=== PATIENT | female | born 1940 | race Caucasian/White ===

== ENCOUNTER 2022-06-19 18:11 | Inpatient (IN) | payer OTHER ==
[~2022-06-19] VITALS: Ht 162.6 cm; Wt 72.6 kg
[2022-06-19 18:21] VITALS: BP 80/26
[2022-06-19] MEDS ORDERED: NACL 0.9% 2,000 ML IV ONE (18:30)
--- NOTE | 2022-06-19 18:30 | NUR ---
CHRISTOS FROM [facility] D/T ALOC. PER EMS, PT WAS ORIGINALLY PLACED ON HOSPICE AND WAS TAKEN OUT OF HOSPICE RECENTLY. UNABLE TO OBTAIN FURTHER HX EMS WAS NOT ABLE TO PROVIDE MORE PAPERWORK INCLUDING FACESHEET THE FACILITY JUST RECEIVED THE PATIENT TO THE FACILITY. PT HR 46 AT BEDSIDE WITH BP 80/26. ERMD AWARE.
--- NOTE | 2022-06-19 18:32 | NUR ---
BLOOD DRAWN BY PRIVATE EQUITY ASSOCIATE
[2022-06-19] MEDS ORDERED: VANCOMYCIN 1,000 MG in DEXTROSE 5% 250 ML IV ONE (18:35)
[2022-06-19] MEDS ORDERED: PIPERACILLIN/TAZOBACTAM 3.375 GM in DEXTROSE 5% 50 ML IV ONE (18:35)
[2022-06-19] MEDS ORDERED: VANCOMYCIN 1,000 MG VIAL ONE (18:38)
[2022-06-19] MEDS ORDERED: PIPERACILLIN/TAZOBACTAM 3.375 GM VIAL IV ONE (18:39)
--- NOTE | 2022-06-19 18:40 | NUR ---
CALLED [facility]. PER STAFF, WILL FAX OVER CLINICALS. NEXT OF KIN CONTACT INFO HARJEET (DAUGHTER) [phone]. ATTEMPTED TO CALL HARJEET, NO ANSWER, LVM. MADDY MADE AWARE.
[2022-06-19 18:43] LABS: HEMATOCRIT 33.1 % (36-48); HEMOGLOBIN 10.7 g/dL (12.0-16.0); MEAN CORPUSCULAR HEMOGLOBIN 29 pg (27-31); MEAN CORPUSCULAR HGB CONC 32 g/dL (33-37); PLATELET COUNT (AUTO) 223 K/uL (140-450); RED BLOOD CELL COUNT(AUTO) 3.77 MIL/uL (4.20-5.40); RED CELL DISTRIBUTION WIDTH 16.5 % (11.6-13.7)
[2022-06-19 19:05] LABS: LYMPHOCYTES % (MANUAL) 7 % (20-46); MONOCYTES % (MANUAL) 4 % (5-12)
[2022-06-19 19:06] LABS: PROMYELOCYTES % 1 % (0-0)
[2022-06-19 19:19] LABS: ALBUMIN 2.4 g/dL (3.4-5.0); ANION GAP 13.2 (8-16); ASPARTATE AMINOTRANSFERASE 26 U/L (15-37); CARBON DIOXIDE 25.1 mmol/L (21-32); CHLORIDE 96 mmol/L (98-107); CREATININE 1.4 mg/dL (0.6-1.3); GLUCOSE 127 mg/dL (74-106); POTASSIUM 4.3 mmol/L (3.5-5.1); SODIUM SERUM 130 mmol/L (136-145); TOTAL BILIRUBIN 0.3 mg/dL (0.0-1.0); UREA NITROGEN, BLOOD 28 mg/dL (7-18)
--- NOTE | 2022-06-19 19:20 | NUR ---
PT APPEARS TO BE RESTING WITH EYES CLOSED, EQUAL RISE AND FALL OF CHEST WALL. ALL NEEDS MET AT THIS TIME.
[2022-06-19] MEDS ORDERED: MORPHINE SULFATE 2 MG/ML SYR IVP PRN (20:50)
[2022-06-19] MEDS ORDERED: ACETAMINOPHEN 650 MG SUPP RC ONE (20:50)
[2022-06-19] MEDS ORDERED: KETOROLAC 15 MG/ML VIAL IVP ONE (20:50)
--- NOTE | 2022-06-19 21:17 | NUR ---
PT REPOSITIONED, DIAPER REMOVED PER DAUGHTER'S REQUEST. PT'S SHEETS REMOVED. MEDICATION GIVEN PER ERMD ORDERS. DAUGHTER IS AT BEDSIDE.
--- NOTE | 2022-06-19 22:34 | NUR ---
SWAB COLLECTED TAKEN TO LAB.
[2022-06-19] MEDS ORDERED: DOCUSATE SODIUM 100 MG GELCAP PO PRN (22:40)
[2022-06-19] MEDS ORDERED: ONDANSETRON 4 MG/2 ML VIAL IM/IVP PRN (22:40)
[2022-06-19] MEDS ORDERED: guaiFENesin DM 200/20 MG-10 ML 10 ML UDC PO PRN (22:40)
[2022-06-19] MEDS ORDERED: ACETAMINOPHEN 325 MG TAB PO PRN (22:40)
[2022-06-19] MEDS ORDERED: ALBUTEROL SULFATE/IPRATROPIU 3 ML SOL IH PRN (22:45)
[2022-06-19] MEDS: DEXT 5% / NACL 0.9% 500 ML IV SCH (23:04)
[2022-06-19 23:29] LABS: PROTHROMBIN TIME 12.2 secs (10.8-13.4)
[2022-06-20] VITALS (7 sets, daily range): BP systolic 98–172; BP diastolic 46–63
[2022-06-20 00:03] LABS: CHOL/HDL RATIO 1.6 (1-4.5); FREE T4 (FREE THYROXINE) 0.86 ng/dL (0.76-1.46); PHOSPHORUS 3.3 mg/dL (2.5-4.9); THYROID STIMULATING HORMONE 0.13 uIU/mL (0.34-3.74)
[2022-06-20 00:50] LABS: APPEARANCE,URINE CLOUDY (CLEAR); BILIRUBIN,URINE NEGATIVE (NEGATIVE); BLOOD, URINE 1+ (NEGATIVE); COLOR,URINE DARK YELLOW (YELLOW); LEUKOCYTE ESTERASE ,URINE 3+ (NEGATIVE); NITRITE, URINE NEGATIVE (NEGATIVE); PH,URINE 6.5 (5.0-9.0); UGLUCOSE NEGATIVE (NEGATIVE)
[2022-06-20 00:56] LABS: RBC,URINE 0-5 /HPF (0-5); WBC,URINE TOO MANY TO COUNT /HPF (0-5)
[2022-06-20] MEDS: MORPHINE SULFATE 2 MG/ML SYR IVP PRN ×3 (01:28→09:14)
[2022-06-20] MEDS ORDERED: [UNRECOGNIZED DRUG - OTHER] PO (02:49)
[2022-06-20] MEDS ORDERED: POTA10TA70 PO (02:49)
[2022-06-20] MEDS ORDERED: LEVO50CA2 PO (02:49)
[2022-06-20] MEDS ORDERED: OXYC-304 PO (02:49)
[2022-06-20] MEDS ORDERED: MONT10TA35 PO (02:49)
[2022-06-20] MEDS ORDERED: QUET100T PO (02:49)
[2022-06-20] MEDS ORDERED: SPIR50TA PO (02:49)
[2022-06-20] MEDS ORDERED: PANT40EC PO (02:49)
[2022-06-20] MEDS ORDERED: CYAN250013 PO (02:49)
[2022-06-20] MEDS ORDERED: FURO-570 PO (02:49)
[2022-06-20] MEDS ORDERED: CETI10TA71 PO (02:49)
[2022-06-20] MEDS ORDERED: ATOR80TA27 PO (02:49)
[2022-06-20] MEDS ORDERED: ASPI-1822 PO (02:49)
[2022-06-20] MEDS ORDERED: LYR50 PO (02:49)
[2022-06-20] MEDS ORDERED: CARV6.25 PO (02:49)
[2022-06-20] MEDS ORDERED: MULT-1328 PO (02:49)
--- NOTE | 2022-06-20 03:24 | NUR ---
PT IS AWAKE AND ALERT. A&OX3. GCS 14. PT HAS BEEN REPOSITIONED FOR COMFORT AND GIVEN WATER.
--- NOTE | 2022-06-20 04:07 | NUR ---
PT REPORTED SPINAL PAIN, PT MEDICATED PER ORDERS.
--- NOTE | 2022-06-20 05:04 | NUR ---
RT AT BEDSIDE. PT GIVEN WATER PER REQUEST.
[2022-06-20] MEDS: ALBUTEROL SULFATE/IPRATROPIU 3 ML SOL IH SCH ×3 (07:00→19:59)
[2022-06-20] MEDS: DEXT 5% / NACL 0.9% 500 ML IV SCH (07:01)
--- NOTE | 2022-06-20 07:07 | NUR ---
PT GIVEN WATER PER REQUEST.
[2022-06-20 07:16] LABS: BASOPHILS % (AUTO) 0.1 % (0.0-2.0); EOSINOPHILS % (AUTO) 0.1 % (0.0-4.0); HEMATOCRIT 35.6 % (36-48); HEMOGLOBIN 11.5 g/dL (12.0-16.0); LYMPHOCYTES # (AUTO) 0.5 K/uL (2.5-16.5); LYMPHOCYTES % (AUTO) 2.2 % (20.5-51.1); MEAN CORPUSCULAR HEMOGLOBIN 29 pg (27-31); MEAN CORPUSCULAR HGB CONC 32 g/dL (33-37); MEAN CORPUSCULAR VOLUME 89.7 fL (80-94); MONOCYTES # (AUTO) 2.8 K/uL (0.8-1.0); MONOCYTES % (AUTO) 11.8 % (1.7-9.3); NEUTROPHILS % (AUTO) 85.8 % (42.2-75.2); PLATELET COUNT (AUTO) 207 K/uL (140-450); RED BLOOD CELL COUNT(AUTO) 3.97 MIL/uL (4.20-5.40); RED CELL DISTRIBUTION WIDTH 16.6 % (11.6-13.7); WHITE BLOOD COUNT (AUTO) 23.3 K/uL (4.8-10.8)
--- NOTE | 2022-06-20 07:27 | NUR ---
Alex natarajan in ED - 06/20/22 at 0728 by PHUONG Pt report given to tremaine garcia. Transfer of care at this time.
--- NOTE | 2022-06-20 07:28 | NUR ---
Pt report given to tremaine garcia. Transfer of care at this time.
[2022-06-20 08:15] LABS: ANION GAP 11.7 (8-16); CARBON DIOXIDE 26.6 mmol/L (21-32); CHLORIDE 97 mmol/L (98-107); CREATININE 1.3 mg/dL (0.6-1.3); GLUCOSE 114 mg/dL (74-106); POTASSIUM 4.3 mmol/L (3.5-5.1); SODIUM SERUM 131 mmol/L (136-145); UREA NITROGEN, BLOOD 24 mg/dL (7-18)
--- NOTE | 2022-06-20 08:58 | NUR ---
PATIENTS DAUGHTER AT BEDSIDE . MED STUDENT RESIDENT AT BEDSIDE SPOKE WITH DAUGHTER REGARDING CARE OF PATIENT
[2022-06-20] MEDS ORDERED: PANTOPRAZOLE 40 MG INJ VIAL IVP SCH (09:00)
--- NOTE | 2022-06-20 09:29 | NUR ---
81YR OLD FEMALE C/O SEPTIC PT IS ADMITTED TO [facility]. PT IS A&OX2 . A DNR STATUS. BEDBOUND. COOPER CATH AND INCONT. PT HAS L SIDED WEAKNESS. PT IS ON DRY CANS OPERATOR. SP02 AT 2L 96%. DAUGHTER CURRENTLY AT BEDSIDE MET CA REDD SMITH
--- NOTE | 2022-06-20 09:41 | NUR ---
DAUGHTER REQUESTING FOR PATIENT TO RECIEVE SOMETHING TO "CALM DOWN " HER MOM. PT IS RESTING WITH HOB UP. PT STATES SHE FEELS HOT , TEMP 97.4 ORAL. NO DISTRESS NOTED. PAGE OUT DR. ROSALES.
[2022-06-20] MEDS ORDERED: LORazepam 0.5 MG TAB ONE (09:58)
[2022-06-20] MEDS ORDERED: LORazepam 0.5 MG TAB PO PRN (10:00)
[2022-06-20] MEDS ORDERED: CRUSHER, PILL MC ONE (10:01)
[2022-06-20] MEDS ORDERED: MEROPENEM 1,000 MG VIAL IV ONE (10:58)
[2022-06-20] MEDS: MEROPENEM 1,000 MG in NACL 0.9% 50 ML IV SCH ×2 (11:07→21:45)
[2022-06-20] MEDS ORDERED: DEXT 5% /NACL 0.9% 1,000 ML IV SCH (11:55)
--- NOTE | 2022-06-20 13:31 | NUR ---
SPOKE WITH HARJEET - DAUGHTER WHO STATED PT IS DNR BUT WOULD LIKE ALL TREATMENT TO BE CONTINUED.
--- NOTE | 2022-06-20 13:47 | NUR ---
Patient will be admitted to care of DR CASTRO. Admited to [TELE Will go to [id number] . Belongings list completed. Report to ABRIL.
--- NOTE | 2022-06-20 13:48 | NUR ---
Chart checked and completed. The patient's care was reviewed and supervised by Angelique Blevins RN.
[2022-06-20] MEDS: PREGABALIN 50 MG CAP PO SCH ×2 (13:54→17:00)
--- NOTE | 2022-06-20 14:41 | NUR ---
DC PLANNING: THE PATIENT WAS BIBA FROM [facility] WITH C/O ALOC, B/P IN FIELD 80/20. T-101.7, HR 46, WBC 22, NA+ 130, CR 1.4, LACTIC ACID 2.3, ALK PHOS 182, UA POSITIVE FOR WBC'S, BACTERIA, BLOOD AND MUCUS. GIVEN VANCO, ZOSYN AND IVF'S IN ED, ORDERS FOR ID CONSULT. CM SPOKE WITH THE PATIENTS DAUGHTER HARJEET BY PHONE. HARJEET REVOKED THE PATIENTS HOSPICE TODAY, STATES THAT PATIENT WAS AT [facility] ASSISTED LIVING AND WAS THEN TRANSITIONED TO [facility] AT THEIR SUGGESTION. WAS WITH [facility] AND THEN [facility]. HOSPICE WAS REVOKED MULTIPLE TIMES WHILE PATIENT WAS AT [facility], EACH TIME SHE WENT TO THE ED. [facility] DID NOT WANT TO SEND THE PATIENT TO ED WHICH DAUGHTER DISAGREED WITH. HARJEET DOES NOT WANT THE PATIENT TO GO BACK ON HOSPICE AND PATIENT HAS EXPRESSED TO HARJEET THAT SHE WANTS TO CONTINUE TO "FIGHT". HARJEET IS NOT SURE WHAT HOSPICE DIAGNOSIS WAS BUT STATES PATIENT WAS BECOMING LESS MOBILE AND MORE INCONTINENT AT [facility]. THE PATIENT HAD A FALL AT [facility] 4 DAYS AGO, PRIOR TO THAT SHE WAS ABLE TO USE HER ELECTRIC WC BUT HAS NOT BEEN AMBULATORY FOR SEVERAL MONTHS. SHE IS ABLE TO FEED HERSELF BUT REQUIRES ASSISTANCE WITH ADL'S. HER DAUGHTER WOULD LIKE HER TO GO TO SNF AND THEN WILL TAKE HER HOME WITH / CAREGIVERS. HER SNF'S OF CHOICE ARE [facility], REPLACED BY [facility] AND [facility]. [place] WILL FOLLOW. Addendum: 06/22/22 at 1414 by Anna Apple CM DC PLANNING: REFERRALS SENT TO [facility], [facility] AND [facility] FOR SNF PLACEMENT, CM WILL FOLLOW UP FOR ACCEPTANCE. Addendum: 06/22/22 at 1524 by Anna Apple CM DC PLANNING: [facility] UNABLE TO ACCEPT THEY DON'T HAVE BEDS. CM SPOKE WITH THE PATIENTS DAUGHTER HARJEET, SHE ASKED THAT REFERRALS BE FAXED TO [facility] SN[facility] ([phone]), [facility] ([phone] AND [facility] ([phone]) SHE LIVES IN [place] AND WANTS THE PATIENT CLOSER TO HER. TRANSPORT WILL NEED TO BE ARRANGED WITH [employer] IF THEY ARE WILLING TO GO TO [place] OTHERWISE THE PATIENTS DAUGHTER WILL HAVE TO PAY PRIVATELY. CM WILL FOLLOW. Addendum: 06/22/22 at 1623 by Anna Apple CM DC PLANNING: PATIENT ACCEPTED BY [facility] IN [place], ROOM 36B WITH DR HELLER. [id number], . FACILITY WILL CALL THE PATIENTS DAUGHTER HARJEET TO CONFIRM AGREEMENT WITH PLACEMENT. CM WILL FOLLOW. Addendum: 06/25/22 at 1604 by Talisha De La Cruz RN DC: PLANNING: CALLED PT'S DAUGHTER [phone] SPOKE WITH HARJEET STATED SHE DIDN'T AGREE WITH HER MOM GOING TO [place] BECAUSED THE RATE IS 2.9. SHE WAS EXPECTING FROM OTHER SNF IN [place] ARE[place]. CALLED [facility] [phone] SPOKE WITH JAMI AND AFTER REVIEWING STATED CALLED BACK AND SAID NO BED AVAILABLE FOR TODAY. [facility] [place] [phone] LEFT A MESSAGE. CALLED [facility] SPOKE WITH JAVIER STATED NO BED AVAILABLE. CM CALLED BACK HARJEET DISCUSSED THE DC PLAN TO HER MOTHER. [facility] SPOKE WITH HI. PER HARJEET IF HER MOM GETS ACCEPT AT REPLACED BY [facility] IT'S HER #1 CHOICE. CM TO FOLLOW Addendum: 06/25/22 at 1642 by Talisha De La Cruz RN DC PLANNING: CALLED [facility] SPOKE WITH JEFFREY [phone] STATED THEY CAN NOT ACCEPT PATIENT TODAY BECAUSE OF SHORT STAFF BUT OK TO SEND PT TOMORROW AM. CM TO FOLLOW Addendum: 06/26/22 at 1257 by Talisha De La Cruz RN DC PLANNING: RECEIVED A MESSAGE FROM HARJEET PT'S DAUGHTER LEFT 3 SNF AROUND [facility] [phone] AND FAXED TO [phone] CALLED [facility] [phone], SPOKE WITH COURTNEY AND FAXED TO [phone]. [facility] [phone] SPOKE WITH JAMI STATED NO BED AVAILABLE THIS WEEK. CM CALLED PT'S DAUGHTER SPOKE WITH HARJEET DISCUSSED THE OTHER FACILITY HAS NO BE PER HARJEET SHE AGREED FOR HER MOM TO GO TO [facility] AND WILL ING TO PAY THE TRANSPORT, CM CONTACT [facility] 650 AND [facility] 550$ . PER HARJEET REQUESTING TO TALKING BOOKS LIBRARY CLERK THE ELECTRIC SCOOTER FROM BOARD AND CARE THE ADDRESS [address] [facility] IN [facility]. CM SPOKE WITH PATIENT AGREED TO GO TO [facility]. PCIK UP TIME 7PM. NOTIFIED SHARON SOTO.
--- NOTE | 2022-06-20 16:06 | NUR ---
PT'S BLOOD PRESSURE 83/47, HR 91, AND TEMP 102.7. TYLENOL GIVEN, BOLUS OF NS GIVEN, MD BARRETO MADE AWARE WILL CONTINUE TO MONITOR
--- NOTE | 2022-06-20 16:21 | NUR ---
PATIENT HAS BEEN SCREENED AND CATEGORIZED HIGH NUTRITION RISK. PATIENT WILL BE SEEN WITHIN 1-2 DAYS OF ADMISSION. ANDREA BALDERRAMA RD
--- NOTE | 2022-06-20 16:41 | NUR ---
BP 104/46, HR 82, TEMP 99.7
--- NOTE | 2022-06-20 17:18 | NUR ---
BP 99/37, MADE AWARE, STARTED PT ON NS @ 100
[2022-06-20] MEDS: NACL 0.9% 1,000 ML IV SCH (17:33)
--- NOTE | 2022-06-20 17:35 | NUR ---
notified dr sharif pt's sbp 90s, map 50s. ordered 1L ns bolus
[2022-06-20] MEDS ORDERED: NACL 0.9% 1,000 ML IV SCH (17:50)
[2022-06-20] MEDS ORDERED: VANCOMYCIN PER PHARMACY MC PRN (17:55)
--- NOTE | 2022-06-20 18:32 | NUR ---
BP , NOTIFIED DR BARRETO, SHE WILL SPEAK TO PT'S DAUGHTER REGARDING CARE
[2022-06-20] MEDS ORDERED: NOREPINEPHRINE 4 MG/4 ML VIAL IV ONE (18:36)
[2022-06-20] MEDS ORDERED: NOREPINEPHRINE 4 MG in DEXTROSE 5% 250 ML IV PRN (18:40)
--- NOTE | 2022-06-20 18:45 | NUR ---
RECEIVED MESSAGE FROM DR BARRETO. START LEVO AND TRANSFER TO ICU
--- NOTE | 2022-06-20 18:54 | NUR ---
PT WAS SEEN FOR DYSPHAGIA. PT WAS HAVING DIFFICULTY INITIATING SWALLOW AND FALLING SLEEP IN BETWEEN. RECOMMENDATION NOTHING BY MOUTH
--- NOTE | 2022-06-20 19:15 | NUR ---
TRANSFERRED TO ICU 2
--- NOTE | 2022-06-20 19:20 | NUR ---
TRANS IN FROM TELE PER BED DUE TO HYPOTENSION; AWAKE ALERT AND ORIENTED; BREATHING EVEN AND UNLABORED AT 2 LITERS 02/NC SO2 97%. CARDIACSCOPE SHOWS ON SINUS RHYTHM HR 78/MIN NO ARRHYTHMIAS SEEN. COMMENCING ON IVF NORMAL SALINE AT 100 ML/HR AND ON LEVOPHED DRIP AT 6 MCG/MIN VIA G 18 IV CANNULA ON LEFT ARM IV CANNULA. ABDOMEN IS SOFT, HYPOACTIVE BOWEL SOUNDS. WITH COOPER CATH TO BEDSIDE URINE BAG DRAINING TO CLEAR YELLOW URINE OUTPUT; PATENT AND INTACT.
[2022-06-20] MEDS: VANCOMYCIN 1,000 MG in DEXTROSE 5% 250 ML IV SCH (20:00)
--- NOTE | 2022-06-20 20:15 | NUR ---
TURNED AND REPOSITIONED PATIENT.
[2022-06-20] MEDS ORDERED: QUEtiapine FUMARATE 100 MG TAB PO SCH (21:00)
[2022-06-20] MEDS: HYDROCORTISONE NA SUCC 100 MG/2 ML VIAL IV SCH (21:00)
[2022-06-20] MEDS ORDERED: carvediloL 6.25 MG TAB PO SCH (21:00)
[2022-06-21] VITALS (17 sets, daily range): BP systolic 101–152; BP diastolic 43–113
--- NOTE | 2022-06-21 03:00 | NUR ---
FOR CT HEAD WITHOUT CONTRAST AND PATIENT REFUSE TO DO IT NOW BECASAUSE SHE SAID SHE WANTS TO SLEEP MORE.
[2022-06-21 06:03] LABS: EOSINOPHILS # (AUTO) 0.1 K/uL (0-0.4); EOSINOPHILS % (AUTO) 0.3 % (0.0-4.0); HEMATOCRIT 32.7 % (36-48); HEMOGLOBIN 10.6 g/dL (12.0-16.0); LYMPHOCYTES % (AUTO) 5.2 % (20.5-51.1); MEAN CORPUSCULAR HEMOGLOBIN 29 pg (27-31); MEAN CORPUSCULAR HGB CONC 32 g/dL (33-37); MEAN CORPUSCULAR VOLUME 88.6 fL (80-94); MONOCYTES # (AUTO) 1.5 K/uL (0.8-1.0); MONOCYTES % (AUTO) 7.8 % (1.7-9.3); NEUTROPHILS # (AUTO) 16.9 K/uL (1.8-7.7); NEUTROPHILS % (AUTO) 86.7 % (42.2-75.2); PLATELET COUNT (AUTO) 206 K/uL (140-450); RED BLOOD CELL COUNT(AUTO) 3.69 MIL/uL (4.20-5.40); WHITE BLOOD COUNT (AUTO) 19.5 K/uL (4.8-10.8)
[2022-06-21 06:12] LABS: ANION GAP 9.6 (8-16); CARBON DIOXIDE 26.1 mmol/L (21-32); CHLORIDE 104 mmol/L (98-107); CREATININE 0.9 mg/dL (0.6-1.3); GLUCOSE 110 mg/dL (74-106); POTASSIUM 3.7 mmol/L (3.5-5.1); SODIUM SERUM 136 mmol/L (136-145); UREA NITROGEN, BLOOD 19 mg/dL (7-18)
[2022-06-21] MEDS: NACL 0.9% 1,000 ML IV SCH ×3 (06:50→23:20)
[2022-06-21 07:07] LABS: T4 (THYROXINE) 4.8 ug/dL (4.5-12.0)
--- NOTE | 2022-06-21 07:15 | NUR ---
Received report from RN. Pt awake and oriented x2, forgetful. Pt in no signs of pain or distress on 2L nasal cannula. Pt off levophed since 99 per report. IV site intact, patent, with IVF infusing. Pt also noted with head/neck contractures. No other complaints at this time.
[2022-06-21] MEDS: ALBUTEROL SULFATE/IPRATROPIU 3 ML SOL IH SCH ×2 (07:43→13:04)
--- NOTE | 2022-06-21 08:00 | NUR ---
Dr. Germain rounding on pt
[2022-06-21] MEDS: PANTOPRAZOLE 40 MG TABEC PO SCH (08:15)
[2022-06-21] MEDS: HYDROCORTISONE NA SUCC 100 MG/2 ML VIAL IV SCH ×2 (08:15→20:50)
[2022-06-21] MEDS: ASPIRIN 81 MG TAB.CHEW PO SCH (08:15)
[2022-06-21] MEDS: MEROPENEM 1,000 MG in NACL 0.9% 50 ML IV SCH ×2 (08:15→21:22)
[2022-06-21] MEDS: ATORVASTATIN 20 MG TAB PO SCH (08:15)
[2022-06-21] MEDS ORDERED: SPIRONOLACTONE 50 MG TAB PO SCH (09:00)
[2022-06-21] MEDS ORDERED: FUROSEMIDE 40 MG TAB PO SCH (09:00)
--- NOTE | 2022-06-21 10:05 | NUR ---
Pt's daughter Xin at bedside, updated regarding pt care.
[2022-06-21] MEDS: HYDROcodone/APAP 7.5/325 MG 1 TAB PO PRN ×2 (10:26→16:29)
--- NOTE | 2022-06-21 10:30 | NUR ---
Patient off unit to CT with continuous monitoring and O2, accompanied by RN and tech.
--- NOTE | 2022-06-21 10:45 | NUR ---
Patient return to unit after CT. Situated to room. Tolerated well.
--- NOTE | 2022-06-21 12:00 | NUR ---
Dr. Turcios rounding on pt, spoke with pt's daughter regarding plan of care.
--- NOTE | 2022-06-21 12:11 | NUR ---
06/21/22 RD INITIAL ASSESSMENT COMPLETED PLEASE REFER TO NUTRITION ASSESSMENT UNDER CARE ACTIVITY FOR ESTIMATED NUTRITIONAL NEEDS. 1. CONTINUE FULL LIQUID DIET TOLERATED -RECOMMEND SWALLOW EVAL BEFORE ADVANCING DIET 2. RECOMMEND ENSURE BID FOR NUTRITION SUPPORT 3. RD TO FOLLOW-UP 3-5 DAYS, MODERATE RISK ANDREA BALDERRAMA RD
--- NOTE | 2022-06-21 13:55 | NUR ---
PT CALLING OUT FOR NURSE, PRIMARY NURSE ON BREAK, I GO TO THE ROOM TO HELP HER "FIX NASAL CANNULA". IT WAS ALREADY IN PLACE. ALL NEEDS MET AT THIS TIME. PT CONTINUOUSLY COMPLAINING BUT NOT MAKING REQUESTS TO HELP MEET HER NEEDS. LEFT PT ROOM, WILL CONTINUE TO MONITOR.
--- NOTE | 2022-06-21 15:28 | NUR ---
dc planning sw attempted to reach patient's emergency contact to gather collateral information, hollis barcenas, however, unsuccessful. sw to follow up
--- NOTE | 2022-06-21 18:33 | NUR ---
pt was seen for dysphagia. pt was able to safely swallow puree diet with thin liquid without s/s of aspiration. recommendation puree diet with thin liquid
--- NOTE | 2022-06-21 19:30 | NUR ---
Received report from Nilda SOTO. PT AWAKE and alert able to answer all question correctly and is in constant need. pt doesn't like being alone. she has a lot of blankets on. She ask me if there was too much cover on her. i told her i wasn't using the covers, but I'd gladly remove some if she wish. she said I was freezing earlier but now i don't need the covers. I remove 3 blankets. she was made more comfortable. vs are stable and she is afebrile. she's no longer hypotensive andher wren is putting out a good amt of clear yellow urine. she passed her swallow eval and is taking spoons of apple sauce.
[2022-06-21] MEDS: IPRATROPIUM 0.02% 0.5 MG/2.5 ML NEBU INH SCH (19:39)
[2022-06-21] MEDS: ALBUTEROL 0.083% 2.5 MG/3 ML NEBU INH SCH (19:40)
[2022-06-21] MEDS: VANCOMYCIN 1,000 MG in DEXTROSE 5% 250 ML IV SCH (20:25)
--- NOTE | 2022-06-21 20:30 | NUR ---
DR. SCHWARTZ CAME INTO ASSESS PT NO NEW ORDERS GIVEN
[2022-06-21] MEDS: DOCUSATE 100 MG/10 ML UDC PO SCH (20:50)
[2022-06-21] MEDS: ZOLPIDEM 5 MG TAB PO PRN (21:20)
[2022-06-22 02:00] VITALS: BP 161/65
[2022-06-22 04:00] VITALS: BP 159/68
--- NOTE | 2022-06-22 04:25 | NUR ---
PHONE CALL TO DR BARRETO, UPDATED ON PTS PRESENT CONDITION.OK TO TRANSFER PT TO TELEMETRY UNIT. PT AWAKE ALERT AND ORIENTED.AWARE OF TRANSFER TO TELE.STILL ON 92NC AT 2LPM.DENIES PAIN. MORNING CARE DONE.
--- NOTE | 2022-06-22 05:02 | NUR ---
PT HAD A VERY LARGE SOFT BROWN STOOL
--- NOTE | 2022-06-22 05:55 | NUR ---
RECEIEVD PT FROM ICU , AWAKE , CONVERSANT , NID - O2 SAT WNL , IV SITE INTACT , SKIN INTACT , ON O2 AT 2LPM/ NC - WILL CONT. TO MONITOR .
[2022-06-22 06:15] LABS: BASOPHILS % (AUTO) 0.1 % (0.0-2.0); LYMPHOCYTES # (AUTO) 1.2 K/uL (2.5-16.5); LYMPHOCYTES % (AUTO) 7.2 % (20.5-51.1); MEAN CORPUSCULAR HEMOGLOBIN 29 pg (27-31); MEAN CORPUSCULAR HGB CONC 32 g/dL (33-37); MEAN CORPUSCULAR VOLUME 88.4 fL (80-94); MONOCYTES # (AUTO) 1.4 K/uL (0.8-1.0); MONOCYTES % (AUTO) 8.1 % (1.7-9.3); NEUTROPHILS # (AUTO) 14.3 K/uL (1.8-7.7); NEUTROPHILS % (AUTO) 84.6 % (42.2-75.2); PLATELET COUNT (AUTO) 218 K/uL (140-450); RED CELL DISTRIBUTION WIDTH 16.7 % (11.6-13.7); WHITE BLOOD COUNT (AUTO) 16.9 K/uL (4.8-10.8)
[2022-06-22 06:18] LABS: ANION GAP 10.1 (8-16); CARBON DIOXIDE 25.3 mmol/L (21-32); CHLORIDE 106 mmol/L (98-107); CREATININE 0.7 mg/dL (0.6-1.3); GLUCOSE 114 mg/dL (74-106); POTASSIUM 3.4 mmol/L (3.5-5.1); SODIUM SERUM 138 mmol/L (136-145); UREA NITROGEN, BLOOD 19 mg/dL (7-18)
[2022-06-22] MEDS: IPRATROPIUM 0.02% 0.5 MG/2.5 ML NEBU INH SCH ×3 (07:00→20:02)
--- NOTE | 2022-06-22 07:04 | NUR ---
PT TRANSFERRED TO [facility] AT 0500.ACCOMPANIED PER 2 RNS PT ON A BED. IV NS STOPPED FOR TRANSFER. TP BE RESTARTED ON ARRIVAL TO [facility].
--- NOTE | 2022-06-22 07:04 | NUR ---
ENDORSED - PT - STABLE
[2022-06-22 08:00] VITALS: BP 183/76
[2022-06-22] MEDS: DOCUSATE 100 MG/10 ML UDC PO SCH ×2 (09:42→21:36)
[2022-06-22] MEDS: ASPIRIN 81 MG TAB.CHEW PO SCH (09:42)
[2022-06-22] MEDS: HYDROCORTISONE NA SUCC 100 MG/2 ML VIAL IV SCH ×2 (09:42→21:44)
[2022-06-22] MEDS: PANTOPRAZOLE 40 MG TABEC PO SCH (09:42)
[2022-06-22] MEDS: MEROPENEM 1,000 MG in NACL 0.9% 50 ML IV SCH (09:43)
[2022-06-22] MEDS: ATORVASTATIN 20 MG TAB PO SCH (09:44)
[2022-06-22 12:00] VITALS: BP 180/72
[2022-06-22] MEDS: ALBUTEROL 0.083% 2.5 MG/3 ML NEBU INH SCH ×3 (12:16→20:03)
--- NOTE | 2022-06-22 12:29 | NUR ---
ADMINISTERED BREATHING TREATMENT, RN REQUESTED ASSISTANCE IN CHANGING PT.
--- NOTE | 2022-06-22 14:04 | NUR ---
PT. WITH LOW TEOFILO SCALE AT MODERATE TO HIGH RISK, CONTINUE TO FOLLOW PRESSURE INJURY PREVENTION INTERVENTIONS. -POSITIONING: TURN AND REPOSITION PATIENT Q 2H OR SOONER USE PILLOWS TO KEEP BONY PROMINENCES FROM DIRECT CONTACT WITH SURFACES USE REPOSITIONING WEDGES TO PROVIDE 30-DEGREE ANGLE FOR SIDE LYING POSITIONS OFFLOADING OR FOAM DRESSING TO ALL TUBING TO PREVENT MEDICAL DEVICES RELATED PRESSURE INJURY -RE-EVALUATING AND MANAGING INCONTINENCE MONITOR SKIN CONDITION DURING POSITION CHANGE DO NOT MASSAGE REDNESS, BONY PROMINENCES FREQUENT JOSEPH-CARE AND PROVIDE BARRIER CREAMS PRN IF SOILING MOISTURE CONTROL BY OFFER BED MEYERS/URINAL /ABSORBENT PAD TO WICK AND HOLD MOISTURE KEEP SKIN DRY AND PROTECT FROM FRICTION -MANAGE FRICTION/SHEAR/MOBILITY KEEP HOB AT THE LOWEST LEVEL OF ELEVATION NO MORE THAN 30 DEGREE UNLESS OTHERWISE CONTRAINDICATED USE LIFT SHEET OR TRANSFER DEVICE TO MOVE PATIENT AND PREVENT LATERAL SHEER. PROTECT HEELS, ELBOWS BONY PROMINENCES WITH SKIN BERRIES OR FOAM DRESSING IF EXPOSED TO FRICTION OFFLOAD BILATERAL HEELS BY PLACING PILLOWS UNDER CALVES AT ALL TIMES, UNLESS OTHERWISE CONTRAINDICATED -PRESSURE REDISTRIBUTION SURFACE THERAPY DANIEL ISOFLEX MATTRESS -NUTRITION: PLEASE FOLLOW RD RECOMMENDATIONS AND OFFER NUTRITION SUPPLEMENTS IF ORDERED. PLEASE CONTACT WOUND CARE NURSE FOR ANY QUESTION AND CHANGE OF WOUND CONDITION.
--- NOTE | 2022-06-22 14:29 | NUR ---
DC PLANNING LATE ENTRY SW UNABLE TO REACH PATIENTS DAUGHTERHARJEET, TO GATHER COLLATERAL INFORMATION. CM EXCHANGED COLLATERAL INFORMATION WITH SW. CM IDENTIFIES DAUGHTER, HARJEET EMERGENCY CONTACT AND MDM. CM REPORTS PATIENT WAS ADMITTED FORM [facility]. PREVIOUS TO [facility], PT WAS RESIDING AT [facility]. PATIENT WAS ON HOSPICE CARE PREVIOUS TO THIS VISIT. HARJEET (PT'S DAUGHTER) DOES NOT WANT PATIENT TO RETURN ON HOSPICE CARE. PT REQUIRES ASSISTANCE WITH ADL'S AND HAS NOT BEEN AMBULATORY FOR SEVERAL MONTHS. HARJEET IS REQUESTING SNF PLACEMENT FOR PT. CM WORKING ON IDENTIFYING PLACEMENT FOR PT.
[2022-06-22] MEDS: CHLORHEXADINE GLUC 2% CLOTH TP SCH (15:00)
[2022-06-22] MEDS: MUPIROCIN CA NASAL 2% 1GM TUBE NS SCH (15:00)
[2022-06-22 16:00] VITALS: BP 175/55
--- NOTE | 2022-06-22 19:35 | NUR ---
RECEIVED PT FROM AM NURSE FOR CONTINUITY OF CARE.PT IS STABLE
--- NOTE | 2022-06-22 19:40 | NUR ---
ENDORSE PATIENT TO PM SHIFT NURSE WHILE PATIENT REST IN BED W/ NO ACUTE DISTRESS NOTED, PIV L. FOREARM INFUSING NS @100ML/HR.
[2022-06-22 20:00] VITALS: BP 153/76
--- NOTE | 2022-06-22 21:30 | NUR ---
ALL SCHEDULED MEDICATIONS GIVEN,NO ADVERSE REACTIONS NOTED
[2022-06-22] MEDS: VANCOMYCIN 1,000 MG in DEXTROSE 5% 250 ML IV SCH (21:33)
[2022-06-22] MEDS: HYDROcodone/APAP 7.5/325 MG 1 TAB PO PRN (23:07)
[2022-06-22] MEDS ORDERED: LAM200 PO (23:40)
[2022-06-22] MEDS ORDERED: GABA400C PO (23:40)
[2022-06-23] VITALS: BP 149/68
--- NOTE | 2022-06-23 02:00 | NUR ---
PATIENT ASLEEP,RESPIRATIONS EVEN AND UNLABORED,NO DISTRESS NOTED,ALL SAFETY MEASURES IN PLACE
[2022-06-23] MEDS: HYDROcodone/APAP 7.5/325 MG 1 TAB PO PRN (03:11)
[2022-06-23 04:00] VITALS: BP 173/69
--- NOTE | 2022-06-23 06:00 | NUR ---
CLEANED AND REPOSITIONED THE PATIENT ,TOLERATED WELL,NO DISTRESS NOTED
[2022-06-23] MEDS: IPRATROPIUM 0.02% 0.5 MG/2.5 ML NEBU INH SCH ×3 (06:54→20:20)
[2022-06-23] MEDS: ALBUTEROL 0.083% 2.5 MG/3 ML NEBU INH SCH ×3 (06:55→20:20)
--- NOTE | 2022-06-23 06:57 | NUR ---
pt breath sounds are clear, and saturations are 100% on room air, pt stated " i can"t do that right now." I explained to the pt i recommend she have the treatment, the pt still said no. i assessed the pt and she is no distress, prn treatments available for patient, will continue to monitor
--- NOTE | 2022-06-23 07:10 | NUR ---
Received pt awake, alert and oriented x2 to person and place. On O2 @2L/min via nasal cannula. On full liquid diet. Ramsey catheter intact and draining to BSD. Peripheral IV on LFA 24 gauge intact and patent infusing NS@100ml/hr. Safety precautions in place.
[2022-06-23 07:32] LABS: HEMATOCRIT 37.6 % (36-48); HEMOGLOBIN 12.2 g/dL (12.0-16.0); MEAN CORPUSCULAR HEMOGLOBIN 29 pg (27-31); MEAN CORPUSCULAR HGB CONC 32 g/dL (33-37); MEAN CORPUSCULAR VOLUME 88.3 fL (80-94); PLATELET COUNT (AUTO) 275 K/uL (140-450); RED BLOOD CELL COUNT(AUTO) 4.26 MIL/uL (4.20-5.40); RED CELL DISTRIBUTION WIDTH 16.8 % (11.6-13.7); WHITE BLOOD COUNT (AUTO) 18.2 K/uL (4.8-10.8)
[2022-06-23 07:56] LABS: ANION GAP 11.4 (8-16); CARBON DIOXIDE 26.4 mmol/L (21-32); CHLORIDE 100 mmol/L (98-107); CREATININE 0.6 mg/dL (0.6-1.3); GLUCOSE 104 mg/dL (74-106); SODIUM SERUM 135 mmol/L (136-145); UREA NITROGEN, BLOOD 13 mg/dL (7-18)
[2022-06-23 08:00] VITALS: BP 151/64
[2022-06-23 08:05] LABS: POTASSIUM 2.8 mmol/L (3.5-5.1)
--- NOTE | 2022-06-23 08:08 | NUR ---
Reported critical lab to Dr. Randall. New order received.
[2022-06-23] MEDS: DOCUSATE 100 MG/10 ML UDC PO SCH ×3 (08:15→21:51)
[2022-06-23] MEDS: PANTOPRAZOLE 40 MG TABEC PO SCH (08:15)
[2022-06-23] MEDS: ATORVASTATIN 20 MG TAB PO SCH (08:15)
[2022-06-23] MEDS: ASPIRIN 81 MG TAB.CHEW PO SCH (08:15)
[2022-06-23] MEDS: CEFEPIME 1,000 MG in DEXTROSE 5% 50 ML IV SCH ×2 (08:16→21:49)
[2022-06-23] MEDS: HYDROCORTISONE NA SUCC 100 MG/2 ML VIAL IV SCH ×2 (08:58→21:46)
[2022-06-23 09:11] LABS: LYMPHOCYTES % (MANUAL) 8 % (20-46); MONOCYTES % (MANUAL) 10 % (5-12)
[2022-06-23 09:12] LABS: MYELOCYTES % 1 % (0-0)
[2022-06-23] MEDS: POTASSIUM CHLORIDE 40 MEQ, LIDOCAINE MPF 1% 25 MG in NACL 0.9% 250 ML IV PRN ×2 (09:23→15:03)
--- NOTE | 2022-06-23 10:30 | NUR ---
Seen and examined by Dr. Randall. New orders received.
[2022-06-23 12:00] VITALS: BP 158/74
[2022-06-23] MEDS ORDERED: MELATONIN 3 MG TAB PO PRN (12:30)
[2022-06-23] MEDS ORDERED: MORPHINE SULFATE 2 MG/ML SYR IVP PRN (12:30)
--- NOTE | 2022-06-23 12:35 | NUR ---
PATIENT AND PATIENT DAUGHTER COMPLAINING OF THE ROOM BEING WARM, WAS ABLE TO OBTAIN A BIOMED SAFETY CHECKED FAN FROM THE CARDIO-PULMONARY DEPARTMENT. PLUGGED FAN INTO OUTLET, SET FAN TO #2 SETTING. WILL CONTINUE TO MONITOR
[2022-06-23] MEDS ORDERED: GABAPENTIN 100 MG CAP PO SCH ×2 (13:00→13:20)
[2022-06-23] MEDS: MUPIROCIN CA NASAL 2% 1GM TUBE NS SCH (15:01)
[2022-06-23] MEDS: CHLORHEXADINE GLUC 2% CLOTH TP SCH (15:02)
--- NOTE | 2022-06-23 16:09 | NUR ---
Endorsed to Alice for continuity of care.
[2022-06-23] MEDS: GABAPENTIN 100 MG CAP PO SCH (16:53)
[2022-06-23 17:03] VITALS: BP 166/77
--- NOTE | 2022-06-23 18:34 | NUR ---
1609 Received pt. for care, pt. aaox3, vss, no distress. Visiting with family at [facility] 1800 Pt. with no distress, call light in reach, vss, [phone]
--- NOTE | 2022-06-23 19:30 | NUR ---
RECEIVED REPORT FROM DAY SHIFT NURSE FOR CONTINUITY OF CARE. PATIENT IS A&O X 2. PATIENT IS ON NASAL CANULA RUNNING AT 2 LITERS. BREATHING IS NORMAL WITH SYMMETRICAL RISE AND FALL OF CHEST. IV IS A 22G IN LEFT FOREARM, RUNNING NS AT 5ML TKO. PATIENT IS CONTRACTED WITH HEAD LEANING DOWN RIGHT SIDE (NEAR RIGHT SHOULDER). COOPER CATHETER IS PRESENT FOR URINATION. PATIENT IS VERBAL, ABLE TO CARRY ON A CONVERSATION BUT GETS CONFUSED. BED IS IN LOWEST POSITION, WHEELS LOCKED, CALL LIGHT IN REACH. WILL CONTINUE TO OBSERVE PATIENT.
[2022-06-23 20:00] VITALS: BP 159/76
[2022-06-23] MEDS: VANCOMYCIN 1,000 MG in DEXTROSE 5% 250 ML IV SCH (20:10)
--- NOTE | 2022-06-23 20:15 | NUR ---
GAVE VANCOMYCIN TO PATIENT. PATIENT TOLERATED MEDICATION WELL. PATIENT IS VERY TALKATIVE AND ALERT. PATIENT REQUESTED MORE WATER. GRABBED CUP AND HELD STRAW UP TO PATIENT TO GIVE HER MORE WATER PATIENT TOOK A FEW SIPS AND THEN SAID THANK YOU. BED IS IN LOWEST POSITION, WHEELS LOCKED, AND CALL LIGHT IN REACH. WILL CONTINUE TO OBSERVE PATIENT.
[2022-06-23] MEDS: QUEtiapine FUMARATE 100 MG TAB PO SCH (21:49)
[2022-06-23] MEDS: carvediloL 6.25 MG TAB PO SCH (21:51)
[2022-06-23] MEDS ORDERED: CRUSHER, PILL MC ONE (21:54)
--- NOTE | 2022-06-23 22:00 | NUR ---
GAVE 2100 MEDICATIONS. MEDICATIONS WERE CRUSHED INTO POWDER AND SPOON-FED TO PATIENT IN APPLESAUCE. PATIENT TOLERATED THEM WELL. PATIENT REFUSED COLACE. IVPB WAS HUNG AND IVP WAS GIVEN. PATIENT WAS INFORMED OF EACH MEDICATION BEING GIVEN. PATIENT'S BREATHING WAS NORMAL WITH SYMMETRICAL RISE AND FALL OF CHEST. BED WAS IN LOWEST POSITION, WHEELS LOCKED, CALL LIGHT IN REACH. WILL CONTINUE TO OBSERVE PATIENT.
--- NOTE | 2022-06-24 | NUR ---
LOOKED IN ON PATIENT. PATIENT WAS SLEEPING. IV FLUID WAS RUNNING NS 5ML TKO. PATIENT'S BREATHING WAS NORMAL WITH SYMMETRICAL RISE AND FALL OF CHEST. BED WAS IN LOWEST POSITION, WHEELS LOCKED, CALL LIGHT IN REACH. WILL CONTINUE TO OBSERVE PATIENT.
--- NOTE | 2022-06-24 03:15 | NUR ---
LOOKED IN ON PATIENT AT 0230. PATIENT WAS AWAKE IN BED AND ASKED FOR HELP SITTING UP MORE. PATIENT WAS MOVED UP FURTHER INTO BED. PATIENT ASKED FOR NEW TAPE TO BE APPLIED TO FACE TO HOLD NASAL CANULA IN PLACE. NC WAS RE-SECURED. PATIENT ASKED FOR WATER, WHICH WAS PROVIDED TO HER. I NOTICED PATIENT HAD BOWEL MOVEMENT AND NEEDED TO BE CHANGED. ASSISTED SALESFORCE BUSINESS ANALYST PATRICE IN CLEANING AND CHANGING THE PATIENT. PATIENT THANKED US. PATIENT'S BREATHING WAS NORMAL WITH SYMMETRICAL RISE AND FALL OF CHEST. BED WAS IN LOWEST POSITION, WHEELS LOCKED, CALL LIGHT IN REACH. WILL CONTINUE TO OBSERVE PATIENT.
--- NOTE | 2022-06-24 06:20 | NUR ---
HELPED PATIENT WITH PHONE TO CALL DAUGHTER. PATIENT NEEDED ME TO HOLD PHONE SO SHE COULD SPEAK TO DAUGHTER. PATIENT NEEDS ASSISTANCE WITH HOLDING AND GRASPING THINGS. WILL CONTINUE TO OBSERVE.
[2022-06-24] MEDS: ALBUTEROL 0.083% 2.5 MG/3 ML NEBU INH SCH ×3 (06:49→19:59)
[2022-06-24] MEDS: IPRATROPIUM 0.02% 0.5 MG/2.5 ML NEBU INH SCH ×3 (06:49→19:59)
[2022-06-24 06:52] LABS: BASOPHILS % (AUTO) 0.3 % (0.0-2.0); EOSINOPHILS % (AUTO) 0.1 % (0.0-4.0); HEMATOCRIT 34.2 % (36-48); HEMOGLOBIN 11.3 g/dL (12.0-16.0); LYMPHOCYTES # (AUTO) 1.4 K/uL (2.5-16.5); MEAN CORPUSCULAR HEMOGLOBIN 29 pg (27-31); MEAN CORPUSCULAR HGB CONC 33 g/dL (33-37); MEAN CORPUSCULAR VOLUME 88.2 fL (80-94); MONOCYTES # (AUTO) 1.2 K/uL (0.8-1.0); NEUTROPHILS # (AUTO) 8.2 K/uL (1.8-7.7); PLATELET COUNT (AUTO) 213 K/uL (140-450); RED BLOOD CELL COUNT(AUTO) 3.88 MIL/uL (4.20-5.40); RED CELL DISTRIBUTION WIDTH 16.4 % (11.6-13.7); WHITE BLOOD COUNT (AUTO) 10.9 K/uL (4.8-10.8)
[2022-06-24 07:27] LABS: ANION GAP 8.2 (8-16); CARBON DIOXIDE 27.6 mmol/L (21-32); CHLORIDE 105 mmol/L (98-107); CREATININE 0.7 mg/dL (0.6-1.3); GLUCOSE 121 mg/dL (74-106); POTASSIUM 3.8 mmol/L (3.5-5.1); SODIUM SERUM 137 mmol/L (136-145); UREA NITROGEN, BLOOD 16 mg/dL (7-18)
--- NOTE | 2022-06-24 07:30 | NUR ---
RECEIVED BEDSIDE REPORT FROM DATA ENTRY ASSISTANT NURSE, PT RESTING, NO DISTRESS NOTED, AWAKE ALERT,ABLE TO LET NEEDS KNOWN, IV TO LEFT FA 24G PATENT INTACT, INFUSING WELL. PT ON 2LPM O2 VIA NC, NO SOB NOTED. COOPER CATH IN PLACE DRAINING TO GRAVITY. INITIAL ASSESSMENT DONE, ALL SAFETY PRECAUTION MET, CALL LIGHT WITHIN REACH, WILL CONTINUE TO MONITOR.
--- NOTE | 2022-06-24 07:30 | NUR ---
ENDORSED CARE OF PATIENT TO DAY SHIFT NURSE. PATIENT IS STABLE.
[2022-06-24 07:57] LABS: LYMPHOCYTES % (AUTO) 13.1 % (20.5-51.1); MONOCYTES % (AUTO) 10.8 % (1.7-9.3); NEUTROPHILS % (AUTO) 75.7 % (42.2-75.2)
[2022-06-24 08:00] VITALS: BP 128/63
[2022-06-24] MEDS ORDERED: HYDRAGUARD CREAM TP PRN (08:50)
[2022-06-24] MEDS: GABAPENTIN 100 MG CAP PO SCH ×3 (09:05→17:22)
[2022-06-24] MEDS: PANTOPRAZOLE 40 MG TABEC PO SCH (09:05)
[2022-06-24] MEDS: ATORVASTATIN 20 MG TAB PO SCH (09:05)
[2022-06-24] MEDS: ASPIRIN 81 MG TAB.CHEW PO SCH (09:06)
[2022-06-24] MEDS: carvediloL 6.25 MG TAB PO SCH ×2 (09:06→21:54)
[2022-06-24] MEDS: DOCUSATE 100 MG/10 ML UDC PO SCH ×3 (09:06→22:03)
[2022-06-24] MEDS: QUEtiapine FUMARATE 100 MG TAB PO SCH ×2 (09:06→21:54)
--- NOTE | 2022-06-24 09:06 | NUR ---
DUE MEDICATIONS ADMINISTERED, PT TOLERATED WELL, NO DISTRESS NOTED, WILL CONTINUE TO MONITOR
[2022-06-24] MEDS: CEFEPIME 1,000 MG in DEXTROSE 5% 50 ML IV SCH ×2 (09:07→21:53)
[2022-06-24] MEDS: HYDROCORTISONE NA SUCC 100 MG/2 ML VIAL IV SCH ×2 (09:07→21:53)
[2022-06-24] MEDS ORDERED: LOPERAMIDE 2 MG CAP PO PRN (12:00)
--- NOTE | 2022-06-24 13:09 | NUR ---
DUE MEDICATIONS ADMINISTERED, PT TOLERATED WELL, NO DISTRESS NOTED, WILL CONTINUE TO MONITOR
[2022-06-24] MEDS: MUPIROCIN CA NASAL 2% 1GM TUBE NS SCH (15:17)
[2022-06-24] MEDS: CHLORHEXADINE GLUC 2% CLOTH TP SCH (15:18)
--- NOTE | 2022-06-24 15:18 | NUR ---
PT HAVING DIARRHEA, IMMODIUM ORDERED ADMINISTERED, PT TOLERATED WELL, WILL CONTINUE TO MONITOR.
[2022-06-24 16:00] VITALS: BP 140/68
--- NOTE | 2022-06-24 17:22 | NUR ---
DUE MEDICATIONS ADMINISTERED, PT TOLERATED WELL, NO DISTRESS NOTED, WILL CONTINUE TO MONITOR
--- NOTE | 2022-06-24 19:27 | NUR ---
ENDORSED PT TO BILLING AND ACCOUNTING STAFF ASSISTANT NURSE FOR CONTINUOUS OF CARE. PT STABLE.
--- NOTE | 2022-06-24 19:30 | NUR ---
RECEIVED REPORT FROM DAY SHIFT NURSE SHEREE. PATIENT IS A&O X2. PATIENT IS ON NS RUNNING 5ML TKO. PATIENT IS ON 2L O2. BREATHING IS NORMAL WITH SYMMETRICAL RISE AND FALL OF CHEST. BED IS IN LOWEST POSITION, WHEELS LOCKED, CALL LIGHT IN PLACE. WILL CONTINUE TO OBSERVE.
[2022-06-24] MEDS: VANCOMYCIN 1,000 MG in DEXTROSE 5% 250 ML IV SCH (19:49)
[2022-06-24 20:00] VITALS: BP 149/88
--- NOTE | 2022-06-24 20:05 | NUR ---
ZAC 2000 IVPB. PATIENT IS LYING IN BED, AWAKE. ASSISTED PATIENT IN MAKING PHONE CALL TO FAMILY MEMBER. BED IS IN LOWEST POSITION, WHEELS LOCKED, CALL LIGHT IN REACH. WILL CONTINUE TO OBSERVE PATIENT.
--- NOTE | 2022-06-24 22:15 | NUR ---
ADMINISTERED 2100 MEDICATIONS TO PATIENT. PATIENT TOLERATED WELL. PATIENT REFUSED DOCUSATE SODIUM. MEDICATION WAS NOT ADMINISTERED. PATIENT IS ON NC 2L. BREATHING IS NORMAL WITH SYMMETRICAL RISE AND FALL OF CHEST. BED IS IN LOWEST POSITION, WHEELS LOCKED, CALL LIGHT IN REACH. WILL CONTINUE TO OBSERVE.
--- NOTE | 2022-06-25 00:30 | NUR ---
LOOKED IN ON PATIENT. PATIENT WAS SLEEPING. IV WAS RUNNING NS 5ML TKO. NC 2L, BREATHING NORMAL WITH SYMMETRICAL RISE AND FALL OF CHEST. WILL CONTINUE TO OBSERVE PATIENT.
--- NOTE | 2022-06-25 03:20 | NUR ---
PATIENT WOKE UP AND NEEDED CHANGING. CREAM PATIENT HAD BM AND VOIDED. PATIENT WAS CLEANED AND NEW CHUCKS WERE PLACED ON BED. CREAM WAS APPLIED TO SACRAL WOUND AND GAUZE WAS APPLIED TO RIGHT LEG BELOW KNEE WHERE PATIENT WAS BLEEDING. RIGHT LEG WAS IRRIGATED WITH NS BEFORE APPLYING THE GAUZED. WILL CONTINUE TO OBSERVE PATIENT.
[2022-06-25 04:00] VITALS: BP 182/74
[2022-06-25 07:01] LABS: ANION GAP 8.6 (8-16); BASOPHILS % (AUTO) 0.2 % (0.0-2.0); CARBON DIOXIDE 30.3 mmol/L (21-32); CHLORIDE 103 mmol/L (98-107); CREATININE 0.7 mg/dL (0.6-1.3); EOSINOPHILS % (AUTO) 0.2 % (0.0-4.0); GLUCOSE 124 mg/dL (74-106); HEMATOCRIT 34.8 % (36-48); HEMOGLOBIN 11.4 g/dL (12.0-16.0); LYMPHOCYTES # (AUTO) 1.3 K/uL (2.5-16.5); LYMPHOCYTES % (AUTO) 10.5 % (20.5-51.1); MEAN CORPUSCULAR HEMOGLOBIN 29 pg (27-31); MEAN CORPUSCULAR HGB CONC 33 g/dL (33-37); MEAN CORPUSCULAR VOLUME 87.8 fL (80-94); MONOCYTES % (AUTO) 8.1 % (1.7-9.3); NEUTROPHILS # (AUTO) 10.4 K/uL (1.8-7.7); PLATELET COUNT (AUTO) 225 K/uL (140-450); RED BLOOD CELL COUNT(AUTO) 3.96 MIL/uL (4.20-5.40); RED CELL DISTRIBUTION WIDTH 16.7 % (11.6-13.7); SODIUM SERUM 139 mmol/L (136-145); UREA NITROGEN, BLOOD 16 mg/dL (7-18); WHITE BLOOD COUNT (AUTO) 12.9 K/uL (4.8-10.8)
[2022-06-25 07:08] LABS: POTASSIUM 2.9 mmol/L (3.5-5.1)
--- NOTE | 2022-06-25 07:15 | NUR ---
RECEIVED CRITICAL LAB OF POTASSIUM 2.9. REACHED OUT TO PHYSICIAN. PENDING RESPONSE.
--- NOTE | 2022-06-25 07:30 | NUR ---
RECEIVED BEDSIDE REPORT FROM WOOD CARVING MACHINE OPERATOR NURSE, PT RESTING, NO DISTRESS NOTED, AWAKE ALERT,ABLE TO LET NEEDS KNOWN, IV TO LEFT LFA 24G PATENT INTACT, INFUSING WELL. PT ON 2LPM O2 VIA NC, NO DISTRESS NOTED. COOPER CATH IN PLACE DRAINING TO GRAVITY. PLAN OF CARE DISCUSSED. ALL SAFETY PRECAUTION MET, CALL LIGHT WITHIN REACH, WILL CONTINUE TO MONITOR.
[2022-06-25] MEDS: ALBUTEROL 0.083% 2.5 MG/3 ML NEBU INH SCH ×3 (07:43→19:05)
[2022-06-25] MEDS: IPRATROPIUM 0.02% 0.5 MG/2.5 ML NEBU INH SCH ×3 (07:43→19:05)
--- NOTE | 2022-06-25 07:45 | NUR ---
ENDORSED CONTINUITY OF CARE TO DAY SHIFT NURSE SHARON. PATIENT IS STABLE. CHARLES HERRERA IS AWARE OF POTASSIUM CRITICAL LAB, PENDING MD RESPONSE, AND MEDICATION ON FILE.
[2022-06-25 08:00] VITALS: BP 181/76
[2022-06-25] MEDS: HYDROcodone/APAP 7.5/325 MG 1 TAB PO PRN ×2 (08:00→19:45)
[2022-06-25] MEDS: DOCUSATE 100 MG/10 ML UDC PO SCH ×2 (09:00→21:00)
--- NOTE | 2022-06-25 09:10 | NUR ---
NOTIFIED MD REGARDING PATIENT'S ELEVATED BP OF 181/76 HR 73. PT IS ASYMPTOMATIC, NO NEW ORDERS RECEIVED. WILL CONTINUE TO MONITOR PATIENT VS.
[2022-06-25] MEDS: PANTOPRAZOLE 40 MG TABEC PO SCH (09:23)
[2022-06-25] MEDS: QUEtiapine FUMARATE 100 MG TAB PO SCH ×2 (09:23→21:17)
[2022-06-25] MEDS: ATORVASTATIN 20 MG TAB PO SCH (09:23)
[2022-06-25] MEDS: GABAPENTIN 100 MG CAP PO SCH (09:24)
[2022-06-25] MEDS: carvediloL 6.25 MG TAB PO SCH ×2 (09:24→21:16)
[2022-06-25] MEDS: HYDROCORTISONE NA SUCC 100 MG/2 ML VIAL IV SCH ×2 (09:25→21:13)
[2022-06-25] MEDS: ASPIRIN 81 MG TAB.CHEW PO SCH (09:25)
[2022-06-25] MEDS: CEFEPIME 1,000 MG in DEXTROSE 5% 50 ML IV SCH ×2 (09:25→21:12)
[2022-06-25] MEDS ORDERED: CEFE1SOL IV (10:09)
[2022-06-25] MEDS: POTASSIUM CHLORIDE 40 MEQ, LIDOCAINE MPF 1% 25 MG in NACL 0.9% 250 ML IV PRN (11:10)
--- NOTE | 2022-06-25 11:45 | NUR ---
CHECKED ON PATIENT. PT IS STABLE. NO DISTRESS NOTED. WILL CONTINUE TO MONITOR.
[2022-06-25] MEDS: GABAPENTIN 300 MG CAP PO SCH ×2 (13:49→17:08)
--- NOTE | 2022-06-25 13:55 | NUR ---
ALL SCHEDULED MEDS GIVEN. PT IS STABLE. NO DISTRESS NOTED. WILL CONTINUE TO MONITOR.
[2022-06-25] MEDS: MUPIROCIN CA NASAL 2% 1GM TUBE NS SCH (15:17)
[2022-06-25] MEDS: CHLORHEXADINE GLUC 2% CLOTH TP SCH (15:17)
[2022-06-25 16:00] VITALS: BP 167/89
--- NOTE | 2022-06-25 17:15 | NUR ---
ALL SCHEDULED MEDS GIVEN. PT IS STABLE. NO DISTRESS NOTED. WILL CONTINUE TO MONITOR.
--- NOTE | 2022-06-25 19:23 | NUR ---
ENDORSED TO PUBLIC [employer]ESS [employer] MECHANIC NURSE FOR CONTINUITY OF CARE. PT IS STABLE.
--- NOTE | 2022-06-25 19:25 | NUR ---
RECEIVED BEDSIDE REPORT FROM DAY SHIFT NURSE, PT AWAKE ALERT AND ORIENTED X 4.PT ON 2LPM O2 VIA NC,BREATHING EQUAL AND UNLABORED, NO DISTRESS NOTED.IV TO LEFT LFA 24G PATENT INTACT, INFUSING WELL COOPER CATH IN PLACE DRAINING TO GRAVITY. PLAN OF CARE DISCUSSED. ALL SAFETY PRECAUTION IN PLACE.CALL LIGHT WITHIN REACH, WILL CONTINUE TO MONITOR.
[2022-06-25] MEDS: VANCOMYCIN 1,000 MG in DEXTROSE 5% 250 ML IV SCH (19:45)
--- NOTE | 2022-06-25 20:00 | NUR ---
PT COMPLAINED OF NECK PAIN. PRN NORCO GIVEN. PT TOLERATED WELL. WILL CONTINUE TO MONITOR.
[2022-06-25] MEDS ORDERED: hydrALAZINE 20 MG/ML VIAL IVP PRN (21:15)
--- NOTE | 2022-06-25 21:56 | NUR ---
SCHEDULED MEDICATIONS GIVEN. PT TOLERATED WELL. WILL CONTINUE TO MONITOR.
--- NOTE | 2022-06-25 23:45 | NUR ---
PT COMPLAINED 7/10 NECK PAIN PRN MORPHINE GIVEN. WILL CONTINUE TO MONITOR.
[2022-06-26] VITALS: BP 146/69
--- NOTE | 2022-06-26 02:00 | NUR ---
PT ASLEEP. VISIBLE CHEST RISE AND FALL NOTED.NO DISTRESS NOTED. ALL PRECAUTIONS IN PLACE. WILL CONTINUE TO MONITOR.
[2022-06-26] MEDS: ZOLPIDEM 5 MG TAB PO PRN (02:35)
[2022-06-26] MEDS: HYDROcodone/APAP 7.5/325 MG 1 TAB PO PRN ×2 (04:45→10:18)
--- NOTE | 2022-06-26 06:39 | NUR ---
PT IS STABLE. NO ACUTE EVENTS THROUGHOUT THE NIGHT. NO S/SX OF DISTRESS. ALL NEEDS ATTENDED. NO COMPLAINS OF PAIN AT THIS MOMENT. ALL PRECAUTIONS IN PLACE. CALL LIGHT WITHIN REACH. WILL ENDORSE TO AM SHIFT NURSE.
[2022-06-26] MEDS: IPRATROPIUM 0.02% 0.5 MG/2.5 ML NEBU INH SCH ×2 (06:54→12:59)
[2022-06-26] MEDS: ALBUTEROL 0.083% 2.5 MG/3 ML NEBU INH SCH ×2 (06:54→12:59)
[2022-06-26 07:07] LABS: HEMATOCRIT 35.6 % (36-48); HEMOGLOBIN 11.5 g/dL (12.0-16.0); MEAN CORPUSCULAR HEMOGLOBIN 29 pg (27-31); MEAN CORPUSCULAR HGB CONC 32 g/dL (33-37); MEAN CORPUSCULAR VOLUME 88.3 fL (80-94); PLATELET COUNT (AUTO) 242 K/uL (140-450); RED BLOOD CELL COUNT(AUTO) 4.03 MIL/uL (4.20-5.40); RED CELL DISTRIBUTION WIDTH 16.1 % (11.6-13.7); WHITE BLOOD COUNT (AUTO) 16.3 K/uL (4.8-10.8)
--- NOTE | 2022-06-26 07:30 | NUR ---
RECEIVED BEDSIDE REPORT FROM DURABILITY ENGINEER NURSE, PT RESTING, NO DISTRESS NOTED, AWAKE ALERT,ABLE TO LET NEEDS KNOWN, IV TO LEFT LFA 24G PATENT INTACT, INFUSING WELL. PT ON 2LPM O2 VIA NC, NO DISTRESS NOTED. COOPER CATH IN PLACE DRAINING TO GRAVITY. PLAN OF CARE DISCUSSED. ALL SAFETY PRECAUTION MET, CALL LIGHT WITHIN REACH, WILL CONTINUE TO MONITOR.
[2022-06-26 07:38] LABS: ANION GAP 8.7 (8-16); CHLORIDE 100 mmol/L (98-107); CREATININE 0.7 mg/dL (0.6-1.3); GLUCOSE 107 mg/dL (74-106); POTASSIUM 3.7 mmol/L (3.5-5.1); SODIUM SERUM 139 mmol/L (136-145); UREA NITROGEN, BLOOD 16 mg/dL (7-18)
[2022-06-26 08:00] VITALS: BP 173/65
[2022-06-26 09:14] LABS: EOSINOPHILS % (MANUAL) 1 % (0-4); LYMPHOCYTES % (MANUAL) 11 % (20-46); MONOCYTES % (MANUAL) 8 % (5-12); MYELOCYTES % 1 % (0-0)
[2022-06-26] MEDS: ASPIRIN 81 MG TAB.CHEW PO SCH (10:03)
[2022-06-26] MEDS: carvediloL 6.25 MG TAB PO SCH (10:05)
[2022-06-26] MEDS: GABAPENTIN 300 MG CAP PO SCH ×3 (10:05→17:00)
[2022-06-26] MEDS: QUEtiapine FUMARATE 100 MG TAB PO SCH (10:05)
[2022-06-26] MEDS: CEFEPIME 1,000 MG in DEXTROSE 5% 50 ML IV SCH (10:05)
[2022-06-26] MEDS: HYDROCORTISONE NA SUCC 100 MG/2 ML VIAL IV SCH (10:06)
[2022-06-26] MEDS: PANTOPRAZOLE 40 MG TABEC PO SCH (10:06)
[2022-06-26] MEDS: ATORVASTATIN 20 MG TAB PO SCH (10:06)
[2022-06-26] MEDS: DOCUSATE 100 MG/10 ML UDC PO SCH (10:07)
--- NOTE | 2022-06-26 10:10 | NUR ---
ALL SCHEDULED MEDS GIVEN. PT IS STABLE. NO DISTRESS NOTED. WILL CONTINUE TO MONITOR.
--- NOTE | 2022-06-26 13:59 | NUR ---
06/26/22 RD FOLLOW UP COMPLETED PLEASE REFER TO NUTRITION ASSESSMENT UNDER CARE ACTIVITY FOR ESTIMATED NUTRITIONAL NEEDS. 1. CONTINUE CARDIAC PUREE DIET TOLERATED 2. RECOMMEND ENSURE BID FOR NUTRITION SUPPORT 3. RD TO FOLLOW-UP 7 DAYS, LOW RISK ANDREA BALDERRAMA RD
[2022-06-26] MEDS: MUPIROCIN CA NASAL 2% 1GM TUBE NS SCH (14:11)
[2022-06-26] MEDS: CHLORHEXADINE GLUC 2% CLOTH TP SCH (14:12)
[2022-06-26 16:00] VITALS: BP 158/63
--- NOTE | 2022-06-26 16:00 | NUR ---
NOTIFIED BY CHARLOTTE AGUAYO THAT PATIENT WILL BE GOING TO [facility] IN [place] AT 1700
--- NOTE | 2022-06-26 16:45 | NUR ---
ENDORSED DISCHARGE INSTRUCTIONS TO PATIENT. PT VERBALIZED UNDERSTANDING BUT UNABLE TO SIGN DISCHARGE FORMS.
--- NOTE | 2022-06-26 17:00 | NUR ---
PATIENT DISCHARGED TO [facility] WITH [facility].
--- NOTE | 2022-06-26 17:38 | NUR ---
ENDORSED REPORT TO ANN DODGE AT [facility]. NOTIFIED HIM THAT ETA WILL BE IN AN HR. HE WILL FOLLOW WITH US ABOUT WHICH ROOM AND ATTENDING MD PATIENT WILL HAVE. WILL ALSO FOLLOW UP WITH THAT INFORMATION IN LESS THAN HALF AN HOUR.
== END 2022-06-26 17:00 | DRG 871 ==
LOC: MED 18:11 → MTU 22:19 → MMU 06-20 12:22 → MIC 06-20 19:44 → MTU 06-22 05:55
PROVIDERS: ADMIT Family Medicine; ATTEND Family Medicine
DX: A41.52 Sepsis due to Pseudomonas (principal); E43 Unspecified severe protein-calorie malnutrition; G93.41 Metabolic encephalopathy; R65.21 Severe sepsis with septic shock; J96.01 Acute respiratory failure with hypoxia; J18.9 Pneumonia, unspecified organism; N39.0 Urinary tract infection, site not specified; J44.0 Chronic obstructive pulmonary disease with (acute) lower respiratory infection; Z20.822 Contact with and (suspected) exposure to COVID-19; E03.9 Hypothyroidism, unspecified; M40.209 Unspecified kyphosis, site unspecified; I25.10 Atherosclerotic heart disease of native coronary artery without angina pectoris; Z68.27 Body mass index [BMI] 27.0-27.9, adult; Z86.73 Personal history of transient ischemic attack (TIA), and cerebral infarction without residual deficits; Z95.5 Presence of coronary angioplasty implant and graft; Z88.8 Allergy status to other drugs, medicaments and biological substances; Z79.84 Long term (current) use of oral hypoglycemic drugs; Z79.899 Other long term (current) drug therapy; I25.2 Old myocardial infarction
CPT/HCPCS: 36415; 70450; 71045; 80048; 80053; 80202; 81001; 82150; 83036; 83605; 83690; 83735; 83880; 84100; 84436; 84439; 84443; 84479; 84484; 85025; 85610; 85730; 87040; 87081; 87086; 92526; 92610; 93005; 94640; 96365; 96366; 96368; 96375; 97110; 97163-GP; 99291; C9113; J0360; J0692; J1720; J1885; J2001; J2185; J2270; J2543; J3370; J3480; J3490; J7030; J7060; J7613; J7644; Q0092